=== PATIENT | female | born 1995 | race Caucasian/White ===

== ENCOUNTER 2021-08-01 06:53 | Emergency (ER) | payer MEDICAID ==
[~2021-08-01] VITALS: Ht 172.7 cm; Wt 60.0 kg
[2021-08-01 06:57] VITALS: BP 118/90
[2021-08-01] MEDS ORDERED: oxymetazoline 15 ML nasal spray NS ONE (07:15)
[2021-08-01] MEDS ORDERED: LIDOcaine 40mg/ml topical solution MM ONE (07:15)
[2021-08-01] MEDS ORDERED: LIDOcaine 4% (40 mg/ml) topical solution 50ml TP ONE (07:20)
== END 2021-08-01 08:00 | disposition home or self-care (01) ==
LOC: ER 06:54
DX: U07.1 COVID-19 (principal); J06.9 Acute upper respiratory infection, unspecified; R42 Dizziness and giddiness; Z88.5 Allergy status to narcotic agent
CPT/HCPCS: 87635; 99283; C9803